=== PATIENT | male | born 2000 | race Asian ===

== ENCOUNTER 2019-06-16 18:27 | Inpatient (IN) ==
[2019-06-16 19:42] LABS: Appearance Urine Clear (Clear); Bilirubin Urine Negative (Negative); Blood Urine Negative (Negative); Color Urine Dark Yellow; Glucose Urine UA Negative (Negative); Ketones Urine 1+ (Negative); Leukocyte Esterase Urine Negative (Negative); Nitrite Urine Negative (Negative); Protein Urine Negative (Negative); Specific Gravity Urine 1.023 (1.000-1.030); Urobilinogen Urine Negative (Negative); pH Urine 6.5 (4.5-7.5)
[2019-06-16 19:52] LABS: Basophils # (auto) 0.01 K/uL (0-0.2); Basophils % (auto) 0.2 %; Eosinophils # (auto) 0.01 K/uL (0-0.5); Eosinophils % (auto) 0.2 %; Hematocrit (blood only) 44.8 % (42-52); Immature Granulocytes # (auto) 0.01 K/uL (0.00-0.02); Immature Granulocytes % (auto) 0.2 %; Lymphocytes # (auto) 1.05 K/uL (1.2-3.4); Lymphocytes % (auto) 17.6 %; Mean Corpuscular Hemoglobin 31.1 pg (25-34); Mean Corpuscular Hgb Conc 35.7 g/dL (32-36); Mean Corpuscular Volume 87.2 fL (80-100); Mean Platelet Volume 9.1 fL (7.4-10.4); Neutrophils # (auto) 4.58 K/uL (1.4-6.5); Neutrophils % (auto) 76.8 %; Platelet Count 269 K/uL (130-400); RDW Coefficient of Variation 12.2 % (11.5-14.5); RDW Standard Deviation 39.4 fL (36.4-46.3); Red Blood Count 5.14 M/uL (4.7-6.1); White Blood Count 5.96 K/uL (4.8-10.8)
[2019-06-16 20:00] LABS: Amphetamines+Metham, Urine Neg (Neg); Barbiturates, Urine Neg (Neg); Benzodiazepine, Urine Neg (Neg); Cocaine, Urine Neg (Neg); MDMA (Ecstacy), Urine Neg (Neg); Methadone, Urine Neg (Neg); Opiate, Urine Neg (Neg); Phencyclidine, Urine Neg (Neg)
[2019-06-16 20:17] LABS: Albumin Level 4.2 gm/dl (3.4-5.0); BUN Creatinine Ratio 10.7 (10-20); Calcium 9.5 mg/dl (8.5-10.1); Creatinine Clr Calc Pharmacy 94.2 ml/min; Est GFR (African American) 118.4; Est GFR (Non-African American) 102.2; Potassium 3.5 mmol/L (3.5-5.1)
[2019-06-16 20:18] LABS: Acetaminophen < 2 ug/ml (10-30); Salicylate < 1.7 mg/dl (2.8-20)
[2019-06-16 20:28] LABS: Albumin Globulin Ratio 1.2 (0.9-2); Bilirubin,Total 0.8 mg/dl (0.2-1); Globulin 3.4 gm/dl (2.5-4.0); Thyroid Stimulating Hormone 0.595 uIu/ml (0.300-4.500); Total Protein 7.6 gm/dl (6.4-8.2)
--- NOTE | 2019-06-16 21:47 | Emergency Department Note ---
Entered by Beena Rdoriguez acting as a scribe for History of Present Illness General Chief complaint: Mental Health Evaluation Stated complaint: MENTAL HEALTH EVAL Time Seen by Provider: 06/16/19 18:33 Source: patient and other ([facility] on campus) Mode of arrival: ambulatory Limitations: no limitations History of Present Illness Onset (ago): day(s) 3 Location: head Radiation: non-radiation Pain Consistency: + constant Relieved By: + none Exacerbated By: + none Associated symptoms: + cough and + other (-neck pain, -difficulty swallowing, -dizziness, -lightheadedness); no fever/chills Treatments prior to arrival: none The patient is a 19 year old male who presents to the ED with complaints of needing a mental health evaluation. He was referred here to the ED via [facility] on [facility]. [facility] notes the patient was found by friends with a belt around his neck yesterday afternoon. The patient has also been trying to have a relationship with a 16 year old female who does not reciprocate his feelings. He admits his friends have been concerned about him recently. He states over the past several months, he has experienced depression and has experienced suicidal ideations twice in the past year. He has spoken with his friends about his problems but states he has never seen a Psychiatrist. He admits he did try tying a belt around his neck and attached it to his closet to see if choking himself "would be painful". He denies any neck pain or difficulty swallowing after the attempt. He denies any dizziness or lightheadedness after the episode. He has not experienced any vision changes. The patient complains of some cold symptoms including a cough. He denies any recent fevers. He is a non-smoker and states he occasionally drinks alcohol. Home Medications Home Medications Medication Instructions Recorded Confirmed Type No Known Home Medications 06/16/19 06/16/19 History Allergies Allergy/AdvReac Type Severity Reaction Status Date / Time No Known Allergies Allergy Unverified 06/16/19 20:25 Past Med/Surg History Medical History Depression Social History Preferred Language: Luxembourgish Communication Ability: Effective Torch Shearer Required: No Beliefs That Will Affect Care: None Feels Safe at Home: Yes Smoking Status: Never smoker Review of Systems See HPI for pertinent positives & negatives. and A total of 10 systems reviewed and were otherwise negative Physical Exam Vital Signs Vital Signs - 24 hr 06/16/19 18:30 Temperature 36.9 C Temperature Source Oral Pulse Rate 68 Pulse Rhythm Regular Pulse Strength Normal Respiratory Rate 18 Respiratory Depth Normal Blood Pressure 130/82 Blood Pressure Mean 98 Blood Pressure Position Sitting Pulse Oximetry 95 Oxygen Delivery Method Room Air Sepsis Recent Fever Within 48 Hours No Sepsis Action Taken by Nursing No Action Required GENERAL: alert, well appearing, well nourished, no distress, non-toxic EYE EXAM: normal conjunctiva, PERRL and EOM's grossly intact OROPHARYNX: no exudate, no erythema, lips, buccal mucosa, and tongue normal and mucous membranes are moist NECK: supple, no nuchal rigidity, no adenopathy, no ligature vargas, no crepitus, non-tender to palpation, full ROM, no stridor. LUNGS: Clear to auscultation. Normal chest wall mechanics HEART: no murmurs, S1 normal and S2 normal ABDOMEN: abdomen soft, non-tender, normo-active bowel sounds, no masses, no rebound or guarding. BACK: Back is symmetrical on inspection and there is no deformity, no midline tenderness, no CVA tenderness. SKIN: no rashes and no bruising UPPER EXTREMITIES: upper extremities are grossly normal. FROM, nml pulses b/l. LOWER EXTREMITIES: No pitting edema. FROM, nml pulses b/l. NEURO EXAM: Normal sensorium, cranial nerves II-XII grossly intact, normal speech, no gross weakness of arms, no gross weakness of legs. Course Course 1849: The patient was evaluated in room A8 and a complete history and physical were performed. 2129: David, our Psychiatric [facility] [employer]acker informed me the patient has been referred upstairs to [facility]. There is a 302 petition written by [facility]. 7: [facility] currently evaluating the patient. Patient still voluntary at this time. Administered Medications Medical Decision Making Differential Diagnosis Differential diagnoses considered include mood disorder, infection, hypoglycem ia, electrolyte abnormalities, cardiac sources, intracerebral event, toxicologic, neurologic, as well as others. Medical Records Attestation: I reviewed the patient's medical records. Home Medications Current Medication List: was personally reviewed by me Laboratory Data Attestation: I reviewed the patient's lab results. Result diagrams: 06/16/19 19:38 06/16/19 19:38 Lab Results 06/16/19 06/16/19 06/16/19 Range/Units 19:33 19:33 19:37 WBC (4.8-10.8) K/uL RBC (4.7-6.1) M/uL Hgb (14.0-18.0) g/dL Hct (42-52) % MCV (80-100) fL MCH (25-34) pg MCHC (32-36) g/dL RDW Std Deviation (36.4-46.3) fL RDW Coeff of Beto (11.5-14.5) % Plt Count (130-400) K/uL MPV (7.4-10.4) fL Immature Gran % (Auto) % Neut % (Auto) % Lymph % (Auto) % [place] % (Auto) % Eos % (Auto) % Baso % (Auto) % Immature Gran # (Auto) (0.00-0.02) K/uL Neut # (Auto) (1.4-6.5) K/uL Lymph # (Auto) (1.2-3.4) K/uL [place] # (Auto) (0.11-0.59) K/uL Eos # (Auto) (0-0.5) K/uL Baso # (Auto) (0-0.2) K/uL Sodium (136-145) mmol/L Potassium (3.5-5.1) mmol/L Chloride (98-107) mmol/L Carbon Dioxide (21-32) mmol/L Anion Gap (3-11) BUN (7-18) mg/dl Creatinine (0.6-1.4) mg/dl Est Cr Clr Drug Dosing ml/min Est GFR ( Amer) Est GFR (Non-Af Amer) BUN/Creatinine Ratio (10-20) Glucose (70-99) mg/dl Calcium (8.5-10.1) mg/dl Total Bilirubin (0.2-1) mg/dl AST (15-37) U/L ALT (12-78) U/L Alkaline Phosphatase (45-117) U/L Total Protein (6.4-8.2) gm/dl Albumin (3.4-5.0) gm/dl Globulin (2.5-4.0) gm/dl Albumin/Globulin Ratio (0.9-2) TSH (0.300-4.500) uIu/ml Urine Color Dark Yellow Urine Appearance Clear (Clear) Urine pH 6.5 (4.5-7.5) Ur Specific [place] 1.023 (1.000-1.030) Urine Protein Negative (Negative) Urine Glucose (UA) Negative (Negative) Urine Ketones 1+ H (Negative) Urine Blood Negative (Negative) Urine Nitrite Negative (Negative) Urine Bilirubin Negative (Negative) Urine Urobilinogen Negative (Negative) Ur Leukocyte Esterase Negative (Negative) Salicylates < 1.7 L (2.8-20) mg/dl Urine Opiates Screen Neg (Neg) Ur Methadone, Qual Neg (Neg) Acetaminophen < 2 L (10-30) ug/ml Urine Barbiturates Neg (Neg) Ur Phencyclidine (PCP) Neg (Neg) U Amphetamin/Meth Scrn Neg (Neg) MDMA (Ecstasy) Screen Neg (Neg) U Benzodiazepines Scrn Neg (Neg) Ur Cocaine Metabolite Neg (Neg) U Marijuana (THC) Screen Neg (Neg) Ethyl Alcohol mg/dL (0-3) mg/dl 06/16/19 06/16/19 06/16/19 Range/Units 19:38 19:38 19:38 WBC 5.96 (4.8-10.8) K/uL RBC 5.14 (4.7-6.1) M/uL Hgb 16.0 (14.0-18.0) g/dL Hct 44.8 (42-52) % MCV 87.2 (80-100) fL MCH 31.1 (25-34) pg MCHC 35.7 (32-36) g/dL RDW Std Deviation 39.4 (36.4-46.3) fL RDW Coeff of Beto 12.2 (11.5-14.5) % Plt Count 269 (130-400) K/uL MPV 9.1 (7.4-10.4) fL Immature Gran % (Auto) 0.2 % Neut % (Auto) 76.8 % Lymph % (Auto) 17.6 % [place] % (Auto) 5.0 % Eos % (Auto) 0.2 % Baso % (Auto) 0.2 % Immature Gran # (Auto) 0.01 (0.00-0.02) K/uL Neut # (Auto) 4.58 (1.4-6.5) K/uL Lymph # (Auto) 1.05 L (1.2-3.4) K/uL [place] # (Auto) 0.30 (0.11-0.59) K/uL Eos # (Auto) 0.01 (0-0.5) K/uL Baso # (Auto) 0.01 (0-0.2) K/uL Sodium 140 (136-145) mmol/L Potassium 3.5 (3.5-5.1) mmol/L Chloride 108 H (98-107) mmol/L Carbon Dioxide 26 (21-32) mmol/L Anion Gap 6.0 (3-11) BUN 11 (7-18) mg/dl Creatinine 1.04 (0.6-1.4) mg/dl Est Cr Clr Drug Dosing 94.2 ml/min Est GFR ( Amer) 118.4 Est GFR (Non-Af Amer) 102.2 BUN/Creatinine Ratio 10.7 (10-20) Glucose 125 H (70-99) mg/dl Calcium 9.5 (8.5-10.1) mg/dl Total Bilirubin 0.8 (0.2-1) mg/dl AST 12 L (15-37) U/L ALT 15 (12-78) U/L Alkaline Phosphatase 57 (45-117) U/L Total Protein 7.6 (6.4-8.2) gm/dl Albumin 4.2 (3.4-5.0) gm/dl Globulin 3.4 (2.5-4.0) gm/dl Albumin/Globulin Ratio 1.2 (0.9-2) TSH 0.595 (0.300-4.500) uIu/ml Urine Color Urine Appearance (Clear) Urine pH (4.5-7.5) Ur Specific [place] (1.000-1.030) Urine Protein (Negative) Urine Glucose (UA) (Negative) Urine Ketones (Negative) Urine Blood (Negative) Urine Nitrite (Negative) Urine Bilirubin (Negative) Urine Urobilinogen (Negative) Ur Leukocyte Esterase (Negative) Salicylates (2.8-20) mg/dl Urine Opiates Screen (Neg) Ur Methadone, Qual (Neg) Acetaminophen (10-30) ug/ml Urine Barbiturates (Neg) Ur Phencyclidine (PCP) (Neg) U Amphetamin/Meth Scrn (Neg) MDMA (Ecstasy) Screen (Neg) U Benzodiazepines Scrn (Neg) Ur Cocaine Metabolite (Neg) U Marijuana (THC) Screen (Neg) Ethyl Alcohol mg/dL < 3.0 (0-3) mg/dl Blood Pressure Blood Pressure Findings: Elevated blood pressure Blood Pressure Disposition: further management by hospitalist MDM Narrative Patient here well-appearing. No evidence of trauma or injury from patient's near syncope with a belt wrapped around his neck 24 hours ago. I do not suspect other occult traumatic injury. Patient being evaluated for inpatient treatment by [facility] Patient is voluntary and in agreement at this time, however there is a 302 petitioning statement that was written by [facility]. I do feel patient would benefit from inpatient psychiatric treatment at this time. Impression & Plan Depression, Suicidal ideation, Suicide attempt Discharge Plan Visit Data *Final* Discharge Date/Time: 06/16/19 23:08 Chief Complaint: Mental Health Evaluation Stated Complaint: MENTAL HEALTH EVAL ED Provider: Faraz Sepulveda Discharge Problem: Depression, Suicidal ideation, Suicide attempt Patient Disposition: Admitted As Inpatient Discharge Instructions Interventions: ED Discharge Assessment Last Done: 06/16/19 23:08 Discharge Problem: Depression Qualifiers: Depression Type: unspecified Qualified Code(s): F32.9 - Major depressive disorder, single episode, unspecified The scribe's documentation has been prepared under my direction and personally reviewed by me in its entirety. I confirm that the note above accurately reflects all work, treatment, procedures, and medical decision making performed by me.
[2019-06-16] MEDS ORDERED: ALUMINUM/MAGNESIUM SUSP 30 ML UDC PO PRN ×2 (22:49→22:52)
[2019-06-16] MEDS ORDERED: BISMUTH SUBSALICYLATE PER ML OMNICELL CHARGE PO PRN ×2 (22:49→22:52)
[2019-06-16] MEDS ORDERED: SODIUM CHLORIDE 0.65% NA SOLN 45 ML (OCEAN) PRN ×2 (22:49→22:52)
[2019-06-16] MEDS ORDERED: MAGNESIUM HYDROXIDE SUSP 30 ML UDC PO PRN ×2 (22:49→22:52)
[2019-06-16] MEDS ORDERED: ACETAMINOPHEN 325 MG TAB PO PRN ×2 (22:49→22:52)
--- NOTE | 2019-06-17 10:35 | History & Physical ---
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 He also reports an identical attempt 3 months ago, both of which he describes as "experimenting" to see if he could hang himself with a belt painlessly. Both suicide attempts occurred in the context of feeling rejected by a female love interest who is 5 years his luke and part of his friend group, but has repeatedly told him that she is not romantically interested in him. She has now filed a police report and he has been advised by police not to have further contact with her. He is minimizing his suicide attempts and stating he is "fine now," but also reports that his second attempt he went further than on his first, and that he was able to lose consciousness painlessly, which was 1 of his goals. He does not endorse symptoms consistent with major depression, but reports his mood changes abruptly in response to feelings of rejection. He is refusing contact with his parents, and has no outpatient treatment. Inpatient treatment is medically necessary due to the severity of symptoms and risk for suicide if discharged. (1) Suicide attempt: 06/17 - Patient with 2 suicide attempts by hanging in the past few months in context of desire for a romantic relationship that is not reciprocated by his female of interest. - Patient minimizing suicide attempts, does not want parents notified as "I'm fine now." - Encourage group attendance and participation, work on healthy coping skills and discharge plan. - Coordinate care with [facility] and [employer]. - Recommend family meeting with parents, which he is refusing. - Consider meeting with friends. Present on Admission?: Yes (2) Depression: 06/17 -working diagnosis is depression not otherwise specified. Patient does not meet criteria for MDD based on his report, as endorses only brief episodes of depressed mood and suicidality, with a negative neurovegetative profile. Differential includes adjustment disorder, ASD, cultural component, personality disorder. Continue to gather collateral information from friends, recommend contact with parents and university. - Recommend psychological testing to assist with diagnosis. Refer for outpatient therapy and psychiatric care. - He denies neurovegitative symptoms, will monitor here. Depression Type: unspecified Qualified Code(s): F32.9 - Major depressive disorder, single episode, unspecified Present on Admission?: Yes Risk Factors Assessment Male: Yes : No Do You Have Access To A Gun?: No Health Problems: No Mental Health Diagnoses: Yes Substance Use Disorders: No Previous Attempt: Yes Family History of Suicide: No Previous Psychiatric Hospitalization: No Hopelessness: No Smoker: No Protective Factors Assessment Methodist Beliefs: No : No Responsible for Young Children: No Employed: No Stable Relationships: No Supportive Family: No (doesn't want contact with family) Good Rapport with Provider: No (No providers) Psychiatric History Identifying Data RADHA SWEENEY is a 19-year-old M [employer] student from [place] who goes by Jonas, has a history of previous psychiatric hospitalization 4 years ago in [place], and was admitted on 06/16/19 22:49 on a 201 voluntary commitment after a suicide attempt by hanging with a belt. Chief Complaint "Last week was really messy, might as well start from the beginning, I have a crush on a good friend". History of Present Illness Patient presented to the ER last night, 06/16/2019, on referral from [facility] where he was seen for an urgent appointment at the urging of his friends. Per documentation from [facility], he was seen for a walk-in assessment and told them he attempted suicide the day prior by hanging with a belt. He endorsed a stressor of interest in a female who did not return his feelings. He stated that he had "an unrequited love (or a prolonged crash) on my very close friend, and my mood swings very widely based on our interaction, from very excited and extremely happy to losing no motivation to do anything at all and suicidal." His friends reported that he was obsessing about this female, having fits of rage and episodes of suicidality. A 302 petition was completed by the therapist stating that he reported a suicide attempt the night prior to their contact, had a belt around his neck and hung it in the closet until he began to lose consciousness. He also reported a previous attempt in the fall 2018 by the same method. He said that his suicidal thoughts come on quickly if his romantic interest does not respond to his text messages quickly. He said he knows what angle and how to hang himself without feeling pain. He disclosed that the woman he was interested in is 16 years old, and a child line report was made by [facility]. In the ER, he reported depressed mood for the past few months, suicidal thoughts over the same time, which worsened acutely when the girl he was interested and did not respond to his text messages. He put padding on the sides of his neck, then placed a belt around his neck and hooked the end of it over a closet noble. He stood on a plastic stand and bend his needs until he began to lose consciousness, and then stopped himself. He told his friends what he had done, who went with him to [facility]. While in the ER, the patient said he received an email from the storage administrator's office stating that the female he was interested in went to the police and filed a restraining order. His admission labs were normal, and he signed in voluntarily for treatment. He is refusing contact with his parents, but reports good support from friends. He remains very focused on his female friend, despite being informed he can no longer have contact with her or face legal problems. On my assessment, he tells a very long and detailed story about his relationship with a female. Reports he has "a crush on a good friend, she doesn't feel the same way, but we're in the same friend group, so we do a lot of stuff together..." He lists several things they've done together, including cooking food and "pulling an all nighter" to study. She has told him "several times that she is not interested in me, but she was fine with being friends with me." He says he was "rejected" by her at the beginning of the fall, but continued to be friends, and recently have been texting each other daily and very involved in each other's lives. She was involved in his looking at cars and helped him pick one out, and they spent time together multiple times over the past week, until she sent him a message 6 days ago that some people thought she was being manipulated by him, and she wanted some space. He "kind of freaked out" and texted her to tell her that their communication was important to him and helped him to "deal with depression, and begged her not to take that away." She didn't reply, "so I got even more worked up and lashed out in a group chat, telling everyone how angry I was." He continued to text her and got increasingly angry and depressed when she did not reply and "called her 50 times" in one day. She ultimately told him "she couldn't handle someone obsessing over her and told me to get professional help." They saw each other again at a "friend get together, sleep over," and "we were very friendly, it was like nothing had ever happened." The next day he sent her text messages and she did not respond, and he went home and "experimented with hanging myself, wanted to see if it hurt, if I was going to go through with it." He says it was not painful, but he stopped the attempt after "drifting in and out of consciousness, I was a little scared." He called a friend, and his friends then took him to [facility] yesterday. He also reports an episode of suicidality in or 2018 when "things weren't going very well between us, I didn't think they would get better, so I did the same thing." He says it was "partially experiment, partially a cry for help." He says he "got better at it this time, so that's scary," meaning he was able to "do it right" so that he didn't feel pain and it was "actually pleasant." He states mood was depressed last semester when this female rejected him, but this semester his mood has been "ok, fine," and only down briefly when he felt rejected by this girl. He reports good sleep, denies changes in appetite or weight, problems with focus or energy, and anhedonia. He reports suicidal thoughts on two discreet occasions as above, that lasted hours. He denies symptoms of anxiety, otf and psychosis. He says he is "fine now," as "my friends wanted to help me, and breakfast was good." He reports a "similar situation" in 2016 when he "had a crush on someone that resulted in some anger issues." States he would "yell at my friends sometimes, and hurt furniture," meaning hitting inanimate objects (broke a computer monitor and punched a wall), but denies any history of HI or violence towards another person. He states police have advised him to cease contact with the female, and says he "will respect her decision, won't initiate any contact with her, unless she initiates it with me. I still want to be friends." He reports "subpar" academic performance last semester, "but I'm still in good standing." He states the first week of this semester went well, attending class, etc. he states he would like to be discharged soon as possible, and list several upcoming events that he would like to attend, as well as wanting to get out to practice Tamazight style fencing with his friend. Past Psychiatric History Previous Psych History: Denies Current Psychiatric Diagnosis: Depression NOS Outpatient Services: None currently. 2016 in [place] for anger issues. He reports he also had a "crush" on somebody at the time which influenced symptoms. Previous Psych Admissions: None Do You Have Access To A Gun?: No History of Previous Suicide Attempt: Yes Describe Attempts in the Past: Attempted hanging 02/2019 "similar method" Past Medication Trials: None Past Head Trauma/Neuro History History of Concussion/Seizure: No Allergies Allergy/AdvReac Type Severity Reaction Status Date / Time No Known Allergies Allergy Unverified 06/16/19 20:25 Home Medications Home Medications Medication Instructions Recorded Confirmed Type No Known Home Medications 06/16/19 06/16/19 History Family History Family History of: None Alcohol History Hx of Alcohol Use Over the Past 12 Months: Yes (occasional) AUDIT Total Score: 1 Does not tolerate alcohol well, so does not drink more than 1 drink (flushes and turns "bright red," tachycardia) Smoking Use Have You Smoked or Used Tobacco Products in the Last 30 Days: No Smoking Status: Never smoker Substance History Hx of Prescription Med Misuse Over the Past 12 Months: No Hx of Over the Counter Med Misuse Over the Past 12 Months: No Hx of Inhalent Misuse Over the Past 12 Months: No Hx of Organic Substance Use Over the Past 12 Months: No Hx of Illegal Substances/Street Drug Use Over Past 12 Months: No Problems as a Result of Past Substance Use: None Identified Personal History Living Arrangements: Apartment Living Arrangements Comments: living in apt with 3 roommates, close to one who he considers a friend, 2 others acquaintance. Childhood: From [place]. Only child. Parents are in [place], mother is a housewife. He talks with them weekly, and sees them in the summer. Came to the [place] 6 [place] ago, when a freshman in . 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 Employment Status: Student Marital Status: Single Number Of Children: 0 Beliefs That Will Affect Care: None Current Legal Problems: Yes Legal Problems Comment: Warning by railroad police officer yesterday to stop communication with female friend, request for ceasing communication, but pt says that he didn't stop after she asked. This girl will borrow his car, she was involved in process of buying the car. Patient History Medical History Depression Social History Preferred Language: Turkish Communication Ability: Effective Gold Miner Required: No Beliefs That Will Affect Care: None Feels Safe at Home: Yes Smoking Status: Never smoker Review of Systems Review of Systems: All systems reviewed & are unremarkable except as noted in HPI & below Physical Exam Psychiatric: Orientation: alert, oriented x 3 and cooperative Apperance: appropriately dressed, appropriately groomed and appeared stated age Seated on chair in NAD, wrapped in a blanket Eye Contact: good eye contact Motor Behavior: steady gait and station and no abnormal motor movements Speech: normal rate/rhythm/volume of speech Affect: euthymic affect and mood congruent with affect Inappropriate affect "I'm fine now." Thought Process: goal directed thought process Conflicting reports, rationalization Suicidal Thoughts: denies suicidal thoughts Homicidal Thoughts: denies homicidal thoughts Hallucinations: no auditory hallucinations and no visual hallucinations Cognition: recent memory grossly intact, remote memory grossly intact, attention grossly intact and language grossly intact Estimated Intelligence: consistent with education level Insight: + poor insight Judgement: + poor judgement Vital Signs (Past 24 Hours): Last Vital Signs Temp 36.3 C L 06/17/19 06:53 Pulse 89 06/17/19 06:54 Resp 18 06/17/19 06:53 BP 113/78 06/17/19 06:54 Pulse Ox 97 06/16/19 23:42 Exam Statement: A physical exam was performed in the ER prior to admission to the unit by Dr. Rena Plata. I accept that physical as correct/medical clearance for the inpatient physical exam. Results & Data Laboratory Results Laboratory Results - last 24 hr 06/16/19 06/16/19 06/16/19 19:33 19:33 19:37 WBC RBC Hgb Hct MCV MCH MCHC RDW Std Deviation RDW Coeff of Beto Plt Count MPV Immature Gran % (Auto) Neut % (Auto) Lymph % (Auto) [place] % (Auto) Eos % (Auto) Baso % (Auto) Immature Gran # (Auto) Neut # (Auto) Lymph # (Auto) [place] # (Auto) Eos # (Auto) Baso # (Auto) Sodium Potassium Chloride Carbon Dioxide Anion Gap BUN Creatinine Est Cr Clr Drug Dosing Est GFR ( Amer) Est GFR (Non-Af Amer) BUN/Creatinine Ratio Glucose Calcium Total Bilirubin AST ALT Alkaline Phosphatase Total Protein Albumin Globulin Albumin/Globulin Ratio TSH Urine Color Dark Yellow Urine Appearance Clear Urine pH 6.5 Ur Specific [place] 1.023 Urine Protein Negative Urine Glucose (UA) Negative Urine Ketones 1+ H Urine Blood Negative Urine Nitrite Negative Urine Bilirubin Negative Urine Urobilinogen Negative Ur Leukocyte Esterase Negative Salicylates < 1.7 L Urine Opiates Screen Neg Ur Methadone, Qual Neg Acetaminophen < 2 L Urine Barbiturates Neg Ur Phencyclidine (PCP) Neg U Amphetamin/Meth Scrn Neg MDMA (Ecstasy) Screen Neg U Benzodiazepines Scrn Neg Ur Cocaine Metabolite Neg U Marijuana (THC) Screen Neg Ethyl Alcohol mg/dL 06/16/19 06/16/19 06/16/19 19:38 19:38 19:38 WBC 5.96 RBC 5.14 Hgb 16.0 Hct 44.8 MCV 87.2 MCH 31.1 MCHC 35.7 RDW Std Deviation 39.4 RDW Coeff of Beto 12.2 Plt Count 269 MPV 9.1 Immature Gran % (Auto) 0.2 Neut % (Auto) 76.8 Lymph % (Auto) 17.6 [place] % (Auto) 5.0 Eos % (Auto) 0.2 Baso % (Auto) 0.2 Immature Gran # (Auto) 0.01 Neut # (Auto) 4.58 Lymph # (Auto) 1.05 L [place] # (Auto) 0.30 Eos # (Auto) 0.01 Baso # (Auto) 0.01 Sodium 140 Potassium 3.5 Chloride 108 H Carbon Dioxide 26 Anion Gap 6.0 BUN 11 Creatinine 1.04 Est Cr Clr Drug Dosing 94.2 Est GFR ( Amer) 118.4 Est GFR (Non-Af Amer) 102.2 BUN/Creatinine Ratio 10.7 Glucose 125 H Calcium 9.5 Total Bilirubin 0.8 AST 12 L ALT 15 Alkaline Phosphatase 57 Total Protein 7.6 Albumin 4.2 Globulin 3.4 Albumin/Globulin Ratio 1.2 TSH 0.595 Urine Color Urine Appearance Urine pH Ur Specific [place] Urine Protein Urine Glucose (UA) Urine Ketones Urine Blood Urine Nitrite Urine Bilirubin Urine Urobilinogen Ur Leukocyte Esterase Salicylates Urine Opiates Screen Ur Methadone, Qual Acetaminophen Urine Barbiturates Ur Phencyclidine (PCP) U Amphetamin/Meth Scrn MDMA (Ecstasy) Screen U Benzodiazepines Scrn Ur Cocaine Metabolite U Marijuana (THC) Screen Ethyl Alcohol mg/dL < 3.0 Current Inpatient Medications Current Inpatient Medications: Current Inpatient Medications Acetaminophen (Tylenol) 650 mg PO Q4H PRN PRN Reason: Headache or Minor Fever Stop: 07/16/19 22:48 Al Hydrox/Mg Hydrox/Simethicone (Maalox) 30 ml PO Q4H PRN PRN Reason: GI Upset Stop: 07/16/19 22:48 Bismuth Subsalicylate (Kaopectate) 15 ml PO PRN PRN PRN Reason: Loose Stool Stop: 07/16/19 22:48 Hydroxyzine HCl (Vistaril) 50 mg PO HSZ PRN PRN Reason: Insomnia Stop: 07/16/19 22:48 Hydroxyzine HCl (Vistaril) 25 mg PO Q4H PRN PRN Reason: Anxiety Stop: 07/16/19 22:48 Magnesium Hydroxide (Milk Of Magnesia) 30 ml PO DAILY PRN PRN Reason: Constipation Stop: 07/16/19 22:48 Sodium Chloride ([place] Nasal) 1 - 2 sprays NA PRN PRN PRN Reason: Nasal Dryness/Congestion Stop: 07/16/19 22:48
[2019-06-17] MEDS ORDERED: COUGH DROP (SUGAR FREE) LOZ 24 LOZ/1 BOX BUCCAL PRN (13:25)
[2019-06-18] MEDS ORDERED: PSEUDOEPHEDRINE HCL 30 MG TAB PO PRN (11:22)
[2019-06-18] MEDS ORDERED: BENZONATATE 100 MG CAPSULE PO PRN (11:23)
--- NOTE | 2019-06-18 11:29 | Psychiatric Progress Note ---
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 He also reports an identical attempt 3 months ago, both of which he describes as "experimenting" to see if he could hang himself with a belt painlessly. Both suicide attempts occurred in the context of feeling rejected by a female love interest who is 5 years his luke and part of his friend group, but has repeatedly told him that she is not romantically interested in him. She has now filed a police report and he has been advised by police not to have further contact with her. He is minimizing his suicide attempts and stating he is "fine now," but also reports that his second attempt he went further than on his first, and that he was able to lose consciousness painlessly, which was one of his goals. He does not endorse symptoms consistent with major depression, but reports his mood changes abruptly in response to feelings of rejection. He is refusing contact with his parents, and has no outpatient treatment. He is agreeing to a family meeting with his friends, who were involved in bringing him into the hospital. Inpatient treatment is medically necessary due to the severity of symptoms and risk for suicide if discharged. (1) Suicide attempt: 06/17 - Patient with 2 suicide attempts by hanging in the past few months in context of desire for a romantic relationship that is not reciprocated by his female of interest. - Patient minimizing suicide attempts, does not want parents notified as "I'm fine now." - Encourage group attendance and participation, work on healthy coping skills and discharge plan. - Coordinate care with [facility] and [facility]. - Recommend family meeting with parents, which he is refusing. - Consider meeting with friends. 06/18 - Patient continues to decline contact with parents. He is willing for a meeting with his friends. - Arrange aftercare at [facility]. (2) Depression: 06/17 -working diagnosis is depression not otherwise specified. Patient does not meet criteria for MDD based on his report, as endorses only brief episodes of depressed mood and suicidality, with a negative neurovegetative profile. Differential includes adjustment disorder, ASD, cultural component, personality disorder. Continue to gather collateral information from friends, recommend contact with parents and university. - Recommend psychological testing to assist with diagnosis. Refer for outpatient therapy and psychiatric care. - He denies neurovegitative symptoms, will monitor here. 06/18 -patient continues to report good mood and denies suicidal thoughts. -Social work coordinated with the [place], patient will be seen for follow-up at [facility]. (3) URI (upper respiratory infection): 06/18 - Pt reporting congestion and cough, Tessalon Perles and pseuoephedrine ordered as needed, and has acetaminophen as well. Present on Admission?: Yes Risk Factors Assessment Male: Yes : No Do You Have Access To A Gun?: No Health Problems: No Mental Health Diagnoses: Yes Substance Use Disorders: No Previous Attempt: Yes Family History of Suicide: No Previous Psychiatric Hospitalization: No Hopelessness: No Smoker: No Protective Factors Assessment Yazdanism Beliefs: No : No Responsible for Young Children: No Employed: No Stable Relationships: No Supportive Family: No (doesn't want contact with family) Good Rapport with Provider: No (No providers) Interval History Identifying Information RADHA SWEENEY is a 19-year-old [employer] student from [place] who goes by Jonas, has a history of previous psychiatric hospitalization 4 years ago in [place], and was admitted on 06/16/19 22:49 on a 201 voluntary commitment after a suicide attempt by hanging with a belt. Chief Complaint "Pretty good, interesting". Review of Systems Notes New onset cough, congestion Sleep Information Total Hours of Sleep: 6.5 Sleep Comments: pt on q-15 minute checks Meal Information Percent Meal Consumed - Breakfast: 100 Percent Meal Consumed - Lunch: 100 Percent Meal Consumed - Dinner: 90 Subjective Subjective Patient was seen & assessed and interval progress reviewed with treatment team. Staff report [facility] Office of Student Care and Advocacy was contacted, as well as [facility], as patient stated he would only go to outpatient treatment there. Informed that he was on the Care Team at [facility]. Recommendations for psychological testing were relayed to [facility] as well. He has been attending and participating in groups, and stated his mood had improved significantly since admission. On my assessment, he reports he's "in a good mood, mostly stoic." He says groups have been "interesting" and he enjoyed relaxation group. He talked to his friend Geo "who sent me here, and told him I was fine." He called his parents but did not tell them that he was hospitalized or having mental health problems. He denies SI and maintains that he is "fine now." He remains unwilling to allow staff to talk to his parents, but is willing for a meeting with his friends who were involved in his coming to the hospital. He says he has not been thinking about the girl he is interested in as much "because I haven't been seeing her," but admits he still thinks about her. He does not think he will see her in the next couple of months, but that they will eventually reconnect "because of the friend group and stuff, and being on the same campus over the summer." He says she was going to invite him to her high school graduation in September, and he hopes "the relationship will be repaired by then, so it will go according to plan." He says they discussed picking up their friends in [place] and [place] in his car and then going to her HS graduation. He reports he understands he is not to initiate communication with her and does not plan on doing so. Physical Exam Psychiatric Orientation: alert, oriented x 3 and cooperative Apperance: appropriately dressed, appropriately groomed and appeared stated age Wrapped in a blanket Eye Contact: good eye contact Motor Behavior: steady gait and station and no abnormal motor movements Speech: normal rate/rhythm/volume of speech Affect: euthymic affect and mood congruent with affect "pretty good" Thought Process: goal directed thought process Thought Content: reality based without delusions Suicidal Thoughts: denies suicidal thoughts Homicidal Thoughts: denies homicidal thoughts Hallucinations: no auditory hallucinations and no visual hallucinations Cognition: recent memory grossly intact, attention grossly intact and language grossly intact Estimated Intelligence: consistent with education level Insight: + impaired insight Judgement: + impaired judgement Vital Signs (Past 24 Hours) Last Vital Signs Temp 37 C 06/18/19 06:34 Pulse 123 H 06/18/19 06:35 Resp 18 06/18/19 06:34 BP 112/73 06/18/19 06:35 Pulse Ox 97 06/16/19 23:42 Results & Data Current Inpatient Medications Current Inpatient Medications: Current Inpatient Medications Acetaminophen (Tylenol) 650 mg PO Q4H PRN PRN Reason: Headache or Minor Fever Stop: 07/16/19 22:48 Al Hydrox/Mg Hydrox/Simethicone (Maalox) 30 ml PO Q4H PRN PRN Reason: GI Upset Stop: 07/16/19 22:48 Bismuth Subsalicylate (Kaopectate) 15 ml PO PRN PRN PRN Reason: Loose Stool Stop: 07/16/19 22:48 Hydroxyzine HCl (Vistaril) 50 mg PO HSZ PRN PRN Reason: Insomnia Stop: 07/16/19 22:48 Hydroxyzine HCl (Vistaril) 25 mg PO Q4H PRN PRN Reason: Anxiety Stop: 07/16/19 22:48 Magnesium Hydroxide (Milk Of Magnesia) 30 ml PO DAILY PRN PRN Reason: Constipation Stop: 07/16/19 22:48 Menthol (Nice) 1 alli BUCCAL PRN PRN PRN Reason: Sore Throat Stop: 07/17/19 13:24 Sodium Chloride (Hudspeth Nasal) 1 - 2 sprays NA PRN PRN PRN Reason: Nasal Dryness/Congestion Stop: 07/16/19 22:48 Mental Health & Subst Abuse Tx Therapist Name of Therapist: [facility] Cosmetic Manager Name of Cosmetic Manager: Denies/None Post Discharge Appointments Primary Care Physician Name Of Family Doctor: [facility] Contact Information Discharge Discharge Address: [address] [place] [address], [address], [place] [address] (1) Depression Depression Type: unspecified Qualified Code(s): F32.9 - Major depressive disorder, single episode, unspecified
--- NOTE | 2019-06-19 11:34 | Discharge Summary ---
Date of Service June 19, 2019 History of Present Illness Patient presented to the ER last night, 06/16/2019, on referral from [facility] where he was seen for an urgent appointment at the urging of his friends. Per documentation from [facility], he was seen for a walk-in assessment and told them he attempted suicide the day prior by hanging with a belt. He endorsed a stressor of interest in a female who did not return his feelings. He stated that he had "an unrequited love (or a prolonged crash) on my very close friend, and my mood swings very widely based on our interaction, from very excited and extremely happy to losing no motivation to do anything at all and suicidal." His friends reported that he was obsessing about this female, having fits of rage and episodes of suicidality. A 302 petition was completed by the therapist stating that he reported a suicide attempt the night prior to their contact, had a belt around his neck and hung it in the closet until he began to lose consciousness. He also reported a previous attempt in the fall 2018 by the same method. He said that his suicidal thoughts come on quickly if his romantic interest does not respond to his text messages quickly. He said he knows what angle and how to hang himself without feeling pain. He disclosed that the woman he was i nterested in is 16 years old, and a child line report was made by [facility]. In the ER, he reported depressed mood for the past few months, suicidal thoughts over the same time, which worsened acutely when the girl he was interested and did not respond to his text messages. He put padding on the sides of his neck, then placed a belt around his neck and hooked the end of it over a closet noble. He stood on a plastic stand and bend his needs until he began to lose consciousness, and then stopped himself. He told his friends what he had done, who went with him to [facility]. While in the ER, the patient said he received an email from the refrigerated company driver's office stating that the female he was interested in went to the police and filed a restraining order. His admission labs were normal, and he signed in voluntarily for treatment. He is refusing contact with his parents, but reports good support from friends. He remains very focused on his female friend, despite being informed he can no longer have contact with her or face legal problems. On my assessment, he tells a very long and detailed story about his relationship with a female. Reports he has "a crush on a good friend, she doesn't feel the sa me way, but we're in the same friend group, so we do a lot of stuff together..." He lists several things they've done together, including cooking food and "pulling an all nighter" to study. She has told him "several times that she is not interested in me, but she was fine with being friends with me." He says he was "rejected" by her at the beginning of the fall, but continued to be friends, and recently have been texting each other daily and very involved in each other's lives. She was involved in his looking at cars and helped him pick one out, and they spent time together multiple times over the past week, until she sent him a message 6 days ago that some people thought she was being manipulated by him, and she wanted some space. He "kind of freaked out" and texted her to tell her that their communication was important to him and helped him to "deal with depression, and begged her not to take that away." She didn't reply, "so I got even more worked up and lashed out in a group chat, telling everyone how angry I was." He continued to text her and got increasingly angry and depressed when she did not reply and "called her 50 times" in one day. She ultimately told him "she couldn't handle someone obsessing over her and told me to get professional help." They saw each other again at a "friend get together, sleep over," and "we were very friendly, it was like nothing had ever happened." The next day he sent her text messages and she did not respond, and he went home and "experimented with hanging myself, wanted to see if it hurt, if I was going to go through with it." He says it was not painful, but he stopped the attempt after "drifting in and out of consciousness, I was a little scared." He called a friend, and his friends then took him to [facility] yesterday. He also reports an episode of suicidality in or 2018 when "things weren't going very well between us, I didn't think they would get better, so I did the same thing." He says it was "partially experiment, partially a cry for help." He says he "got better at it this time, so that's scary," meaning he was able to "do it right" so that he didn't feel pain and it was "actually pleasant." He states mood was depressed last semester when this female rejected him, but this semester his mood has been "ok, fine," and only down briefly when he felt rejected by this girl. He reports good sleep, denies changes in appetite or weight, problems with focus or energy, and anhedonia. He reports suicidal thoughts on two discreet occasions as above, that lasted hours. He denies symptoms of anxiety, otf and psychosis. He says he is "fine now," as "my friends wanted to help me, and breakfast was good." He reports a "similar situation" in 2016 when he "had a crush on someone that resulted in some anger issues." States he would "yell at my friends sometimes, and hurt furniture," meaning hitting inanimate objects (broke a computer monitor and punched a wall), but denies any history of HI or violence towards another person. He states police have advised him to cease contact with the female, and says he "will respect her decision, won't initiate any contact with her, unless she initiates it with me. I still want to be friends." He reports "subpar" academic performance last semester, "but I'm still in good standing." He states the first week of this semester went well, attending class, etc. he states he would like to be discharged soon as possible, and list several upcoming events that he would like to attend, as well as wanting to get out to practice [place] style fencing with his friend. Physical Exam Psychiatric Orientation: alert, oriented x 3 and cooperative (And pleasant) Apperance: appropriately dressed (Wearing T-shirt and scrub pants, casually dressed), appropriately groomed and appeared stated age Patient wearing surgical mask, complaining of congestion and cough Eye Contact: good eye contact Motor Behavior: steady gait and station and no abnormal motor movements Speech: normal rate/rhythm/volume of speech Affect: euthymic affect and mood congruent with affect Mood: no depressed mood ("I am feeling a lot better, no issues") Thought Process: goal directed thought process and clear/coherent thought process Thought Content: reality based without delusions Suicidal Thoughts: denies suicidal thoughts Homicidal Thoughts: denies homicidal thoughts Hallucinations: no auditory hallucinations and no visual hallucinations Cognition: recent memory grossly intact, attention grossly intact and language grossly intact Estimated Intelligence: consistent with education level Insight: + fair insight Judgement: + fair judgement Vital Signs (Past 24 Hours) Last Vital Signs Temp 36.8 C 06/19/19 07:12 Pulse 105 H 06/19/19 07:13 Resp 18 06/19/19 07:12 BP 126/89 06/19/19 07:13 Pulse Ox 97 06/16/19 23:42 Principal Diagnosis - Depression NOS (differential includes adjustment disorder, ASD, cultural component, and personality disorder - among other considerations). 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 It was reported that friends took him to [facility] for an urgent evaluation after he disclosed a suicide attempt by hanging with a belt the weekend prior to admission. He also reported an identical attempt 3 months ago, both of which he described as "experimenting" to see if he could hang himself with a belt "painlessly". Both suicide attempts occurred in the context of feeling rejected by a female love interest who is 5 years his luke and part of his friend group, but has repeatedly told him that she is not romantically interested in him. It was reported that this female minor had filed a police report and the patient had been advised by police not to have further contact with her. Initially in his hospitalization, the patient was minimizing his suicide attempts and frequently stated he is "fine now," but also reported that in his second attempt he went further than on his first, and that he was able to lose consciousness painlessly, which was one of his goals. He did not endorse symptoms consistent with major depression, but reports his mood changes abruptly in response to feelings of rejection. Working diagnosis for his inpatient psychiatric admission was depressive disorder NOS, differential diagnosis including adjustment disorder, ASD, a cultural component to presentation, and personality disorder. Medications were not recommended or pursued by the patient himself during his psychiatric hospitalization. Patient was agreeable with referral for outpatient therapy through [facility]. It is also reported that he will be on a list of higher concern through the [place] due to the interactions with this female individual. Over the course of his hospitalization, the patient participated in group and recreational programming, and demonstrated appropriate behavior with peers. He did refuse contact with his parents, though did himself reach out to them during his hospitalization. He was agreeable with involving friends and a support meeting in order to discuss aftercare and safety planning. At the time of discharge, patient is able to convincingly denies suicidal ideation. He reports significant improvement in his mood, and is able to contract for safety outside of the inpatient hospital setting. Outpatient appointments were scheduled to allow for timely follow-up after hospital discharge. He will be seen at [facility] for continued outpatient therapy. An appointment was also scheduled with [facility] to assist with any missed schoolwork and other arrangements as a result of is hospital admission. We are recommending neuropsychological testing on an outpatient basis to further clarify diagnosis. Patient was able to verbalize specific aspects of his safety plan, and written copy was reviewed by this provider prior to discharge. Based on review of patient's case and their current presentation, risk of harm to self or others is no longer perceived to be acute. Management of symptoms on an outpatient basis seems the most appropriate and least restrictive setting. Pt seems appropriate for discharge with recommendation for consistent follow-up with outpatient therapist. Pt verbalized understanding of discharge plan reviewed and is agreeable with plan to be discharged home today. Day of Discharge Assessment Patient's case was reviewed and discussed with nursing and social work. Staff reports he rated his mood a 9/10 and "happy" last evening. He does have a meeting scheduled with 2 of his friends for this afternoon, patient is hopeful that discharge may be considered, and he can leave after this meeting. Patient continued to participate appropriately in group and recreational programming. He continued to deny suicidality to staff overnight. Patient was seen today to assess readiness for discharge. He provided verbal consent to allow Yulia Rosa PA-C to observe today's encounter. When offering a "recap" as to the reason for his admission, he states "well, I tried to hang myself. There is this girl that I really liked, and I think she was overwhelmed. She needed some space from me. And that makes sense." Patient states that over the course of his admission, he is come to terms with the changes in this friendship/relationship, and has denied ongoing suicidal ideation. The patient states that he has benefited from group programming, and is hopeful to return to using coping strategies he has outside of the unit as well. Patient is future oriented in conversation, demonstrating excited affect when discussing the several clubs he is involved in. Patient states that after this admission, he is hoping to join the meditation club on campus. Patient is able to verbalize a detailed safety plan during our interaction, and is able to contract for safety outside of the inpatient hospital setting. Discharge plan was reviewed with the patient, who verbalized understanding and is agreeable with returning home today as long as there are no concerns brought up during his support meeting. He feels as though his treatment goals have been met, and denies any other needs from his inpatient psychiatric hospitalization. ROS: Constitutional: denied Cardiovascular: denied Respiratory: reports ongoing dry cough and nasal congestion Gastrointestinal: denied Neurological: denied Psychiatric: denies symptoms other than stated above Total of at least 10 systems reviewed, pertinent positives as above and in HPI. Transition of Care Transition Of Care Record: was reviewed with the patient Advance Directives Advance Directives Information Provided: Yes Advance Directives: No Mental Health Advance Directive: No Advance Directives on File: No Living Will: No Power of Scagliola Mechanic: No Advance Directives Reason:: Declines as Mental Health Visit. Risk Factors Assessment Presenting risk factors reviewed on discharge. Precipitating stressors mitigated by: admission for inpatient psychiatric observation and treatment, attendance of therapeutic treatment groups, development of healthy and effective coping strategies, involvement of outpatient supports, completion of a safety plan, and education on diagnoses. Pt has demonstrated improvement in condition with regard to improvement in mood, resolution of suicidal ideation, development of effective coping strategies, and ability to process feelings of rejection during group programming. At this time, patient is requesting discharge and is no longer considered to be at acute risk of harm to himself or others. Pt will be discharged with recommendation for ongoing outpatient psychiatric treatment. Pt is at increased risk of harm to self or others when compared to the general population and there are several risk factors which are not likely to be mitigated in an inpatient treatment setting. Male: Yes : No Do You Have Access To A Gun?: No Health Problems: No Mental Health Diagnoses: Yes Substance Use Disorders: No Previous Attempt: Yes Family History of Suicide: No Previous Psychiatric Hospitalization: No Hopelessness: No Smoker: No Protective Factors Assessment Quaker Beliefs: No : No Responsible for Young Children: No Employed: No Stable Relationships: No Supportive Family: No (doesn't want contact with family) Good Rapport with Provider: No (No providers) Tobacco Cessation at Discharge Tobacco Cessation Medication Prescribed at Discharge: Not Applicable/Non-Smoker Total Time Total Time Spent: Greater Than 30 Minutes Total Time Includes: Examination of the patient, Discharge Planning, Medication Reconciliation and Communication with other providers Discharge Data Lab Results 06/16/19 06/16/19 06/16/19 19:33 19:33 19:37 WBC RBC Hgb Hct MCV MCH MCHC RDW Std Deviation RDW Coeff of Beto Plt Count MPV Immature Gran % (Auto) Neut % (Auto) Lymph % (Auto) [place] % (Auto) Eos % (Auto) Baso % (Auto) Immature Gran # (Auto) Neut # (Auto) Lymph # (Auto) [place] # (Auto) Eos # (Auto) Baso # (Auto) Sodium Potassium Chloride Carbon Dioxide Anion Gap BUN Creatinine Est Cr Clr Drug Dosing Est GFR ( Amer) Est GFR (Non-Af Amer) BUN/Creatinine Ratio Glucose Calcium Total Bilirubin AST ALT Alkaline Phosphatase Total Protein Albumin Globulin Albumin/Globulin Ratio TSH Urine Color Dark Yellow Urine Appearance Clear Urine pH 6.5 Ur Specific [place] 1.023 Urine Protein Negative Urine Glucose (UA) Negative Urine Ketones 1+ H Urine Blood Negative Urine Nitrite Negative Urine Bilirubin Negative Urine Urobilinogen Negative Ur Leukocyte Esterase Negative Salicylates < 1.7 L Urine Opiates Screen Neg Ur Methadone, Qual Neg Acetaminophen < 2 L Urine Barbiturates Neg Ur Phencyclidine (PCP) Neg U Amphetamin/Meth Scrn Neg MDMA (Ecstasy) Screen Neg U Benzodiazepines Scrn Neg Ur Cocaine Metabolite Neg U Marijuana (THC) Screen Neg Ethyl Alcohol mg/dL 06/16/19 06/16/19 06/16/19 19:38 19:38 19:38 WBC 5.96 RBC 5.14 Hgb 16.0 Hct 44.8 MCV 87.2 MCH 31.1 MCHC 35.7 RDW Std Deviation 39.4 RDW Coeff of Beto 12.2 Plt Count 269 MPV 9.1 Immature Gran % (Auto) 0.2 Neut % (Auto) 76.8 Lymph % (Auto) 17.6 [place] % (Auto) 5.0 Eos % (Auto) 0.2 Baso % (Auto) 0.2 Immature Gran # (Auto) 0.01 Neut # (Auto) 4.58 Lymph # (Auto) 1.05 L [place] # (Auto) 0.30 Eos # (Auto) 0.01 Baso # (Auto) 0.01 Sodium 140 Potassium 3.5 Chloride 108 H Carbon Dioxide 26 Anion Gap 6.0 BUN 11 Creatinine 1.04 Est Cr Clr Drug Dosing 94.2 Est GFR ( Amer) 118.4 Est GFR (Non-Af Amer) 102.2 BUN/Creatinine Ratio 10.7 Glucose 125 H Calcium 9.5 Total Bilirubin 0.8 AST 12 L ALT 15 Alkaline Phosphatase 57 Total Protein 7.6 Albumin 4.2 Globulin 3.4 Albumin/Globulin Ratio 1.2 TSH 0.595 Urine Color Urine Appearance Urine pH Ur Specific [place] Urine Protein Urine Glucose (UA) Urine Ketones Urine Blood Urine Nitrite Urine Bilirubin Urine Urobilinogen Ur Leukocyte Esterase Salicylates Urine Opiates Screen Ur Methadone, Qual Acetaminophen Urine Barbiturates Ur Phencyclidine (PCP) U Amphetamin/Meth Scrn MDMA (Ecstasy) Screen U Benzodiazepines Scrn Ur Cocaine Metabolite U Marijuana (THC) Screen Ethyl Alcohol mg/dL < 3.0 Hospital Course (1) Suicide attempt: 06/17 - Patient with 2 suicide attempts by hanging in the past few months in context of desire for a romantic relationship that is not reciprocated by his female of interest. - Patient minimizing suicide attempts, does not want parents notified as "I'm fine now." - Encourage group attendance and participation, work on healthy coping skills and discharge plan. - Coordinate care with [facility] and [facility]. - Recommend family meeting with parents, which he is refusing. - Consider meeting with friends. 06/18 - Patient continues to decline contact with parents. He is willing for a meeting with his friends. - Arrange aftercare at [facility]. (2) Depression: 06/17 -working diagnosis is depression not otherwise specified. Patient does not meet criteria for MDD based on his report, as endorses only brief episodes of depressed mood and suicidality, with a negative neurovegetative profile. Differential includes adjustment disorder, ASD, cultural component, personality disorder. Continue to gather collateral information from friends, recommend contact with parents and university. - Recommend psychological testing to assist with diagnosis. Refer for outpatient therapy and psychiatric care. - He denies neurovegitative symptoms, will monitor here. 06/18 -patient continues to report good mood and denies suicidal thoughts. -Social work coordinated with the [place], patient will be seen for follow-up at [facility]. (3) URI (upper respiratory infection): 06/18 - Pt reporting congestion and cough, Tessalon Perles and pseuoephedrine ordered as needed, and has acetaminophen as well. Mental Health & Subst Abuse Tx Therapist Name of Therapist: PEGGY Portillo Therapist's Phone Number: [phone] Date of Therapist Appointment: 06/23/19 Time of Therapist Appointment: 3:00pm Therapy Appointment Comment: Student Health Screener And Blender Name of Screener And Blender: [facility] Steven Carney Phone Number for Screener And Blender: [phone] Date of Appointment with Screener And Blender: 06/23/19 Time of Appointment with Screener And Blender: 11:00 a.m. Case Management Appointment Comment: [address] Post Discharge Appointments Primary Care Physician Name Of Family Doctor: [facility] Primary Care Provider Appointment Comment: As needed Smoking Cessation Counseling Tobacco Cessation Medication Prescribed at Discharge: Not Applicable/Non-Smoker Other #1: Name of Aftercare Appointment: [facility] Phone Number of Aftercare Appointment: [phone] Contact Information Discharge Discharge Address: [address] [place] [address], [place] [address] Discharge Plan Discharge Items Patient Disposition: Home - Self-Care Reason For Visit: MDD Discharge Diagnosis: - Depression Condition on Discharge: Good Activity: Resume your previous activity Non-emergency contact: Primary Care Provider and Therapist Call non-emergency contact if: you have any medication questions and your symptoms worsen Follow-up/Referrals: [place] [Primary Care Provider] - Diet: Regular Addtl Attending Provider Instructions: SPECIAL CARE INSTRUCTIONS: 1. Follow through with your scheduled aftercare appointments. If unable to keep an appointment, please call to reschedule. 2. Take your medication only as prescribed. Medication should not be changed or stopped without the approval of your doctor. In the event of worsening symptoms or concerns about side effects, contact your doctor immediately. 3. Utilize new healthy coping skills, anger management skills, and stress management skills learned during your hospitalization. Journal feelings and process them with a support person. Identify stressors or situations that may result in relapse, deterioration or inappropriate behaviors and develop a plan to deal with those issues. 4. If your coping skills are ineffective and you are in crisis, contact your outpatient providers for direction. If unable to reach your providers, please call the CRISIS LINE AT or go to the closest Emergency Room. 5. Avoid alcohol and un-prescribed drugs. 6. You have been provided with the Mental Health Advance Directives Pamphlet for your review. AFTERCARE APPOINTMENTS: * Please call your insurance company prior to your scheduled appointment to confirm your aftercare providers are covered. Take your insurance information to your appointments. WHO TO CALL AND WHEN: Medical Emergencies: For questions or emergencies related to your hospital stay, please contact the Inpatient Behavioral Health Unit at [phone]. A care clinician is on-call 18/12 for the Behavioral Health Unit for emergencies At any time you feel your situation is an emergency, you may also call 911 immediately. Your Discharge Instructions noted above were prepared by provider Faustina Durán PA-C. Pending Studies at Discharge: No Stand-Alone Forms: My [facility], Smoking Cessation, Suicide Prevention Resources Medications and DC Order Prescriptions: No Action No Known Home Medications RF: 0 Discharge Orders: Discharge Order (Routine); Ordered 06/19/19 Ordered By: Faustina Durán Admission Data Admit Date/Time: 06/16/19 22:49 Attending Provider: Gali Luna Admit Provider: Bernarda Menon Primary Care Provider: [facility] Other Interventions: Discharge Summary Assessment (RN) Last Done: 06/19/19 11:46 PSY Interdisciplinary Discharge Planning Last Done: 06/19/19 14:44 DC Date/Time DO NOT enter until pt leaves facility: 06/19/19 15:18 Coding Level of Care Code 70239 D/C day mgmt > 30 min Diagnoses Suicide attempt T14.91XA Depression F32.9 Depression Type: unspecified URI (upper respiratory infection) J06.9
== END 2019-06-19 15:18 | disposition home or self-care (01) | DRG 881 ==
LOC: ED 18:27 → 3S 22:49 → SUATTDRO 22:49 → 3S 23:08